=== PATIENT | female | born 1995 | race Caucasian/White ===

== ENCOUNTER 2017-07-07 08:00 | Outpatient (CLI) | payer OTHER | END 2017-07-07 08:01 | disposition home or self-care (01) | LOC: LAB.R 08:00 | PROVIDERS: ATTEND Registered Nurse | DX: Z11.3 Encounter for screening for infections with a predominantly sexual mode of transmission (principal) | CPT/HCPCS: 87491; 87591 ==

== ENCOUNTER 2017-07-07 08:00 | Outpatient (CLI) | payer OTHER ==
[2017-07-07 19:36] LABS: THYROID STIMULATING HORMONE 2.67 uIU/mL (0.34-5.60)
[2017-07-07 19:42] LABS: PROLACTIN 7.43 ng/mL
[2017-07-07 19:52] LABS: HB2 TOTAL 14.8 g/dL; HEMOGLOBIN A1C 0.44 g/dL; HEMOGLOBIN A1C % 4.9 % (4.6-6.2)
[2017-07-07 20:04] LABS: FOLLICLE STIMULATING HORMONE 6.56 mIU/mL
[2017-07-07 20:05] LABS: LUTEINIZING HORMONE 17.03 mIU/mL
== END 2017-07-07 08:01 | disposition home or self-care (01) ==
LOC: LAB.N 08:00
PROVIDERS: ATTEND Registered Nurse
DX: N92.6 Irregular menstruation, unspecified (principal); Z11.3 Encounter for screening for infections with a predominantly sexual mode of transmission
CPT/HCPCS: 36415; 81599; 82627; 83001; 83002; 83036; 84146; 84270; 84402; 84403; 84443; 87491; 87591

== ENCOUNTER 2017-07-17 18:55 | Outpatient (CLI) | payer OTHER ==
--- NOTE | 2017-07-18 10:42 | Ultrasound Report ---
PELVIC ULTRASOUND: 07/17/2017 CLINICAL INDICATION: Irregular menstruation. TECHNIQUE: Transabdominal pelvic ultrasound performed for global evaluation. Transvaginal pelvic ultrasound performed for detailed evaluation. Real-time scanning performed and static images obtained. FINDINGS: The uterus is anteverted, measuring 8.5 x 4.9 x 3.6 cm. The endometrial echo complex measures 18 mm. No focal myometrial lesion is present. The right ovary measures 3.2 x 2.1 x 1.8 cm, and is unremarkable. The left ovary measures 3.3 x 2.8 x 2.2 cm, and contains a 2.3 cm hemorrhagic cyst. No free fluid is present. IMPRESSION: LEFT HEMORRHAGIC CYST. TD: 07/18/2017 10:41
== END 2017-07-17 18:56 | disposition home or self-care (01) ==
LOC: DI 18:55
PROVIDERS: ATTEND Registered Nurse
DX: N83.202 Unspecified ovarian cyst, left side (principal)
CPT/HCPCS: 76830; 76856

== ENCOUNTER 2017-10-10 12:51 | Outpatient (CLI) | payer OTHER ==
[2017-10-10 13:16] LABS: BASOPHILS % (AUTO) 0.3 %; EOSINOPHILS # (AUTO) 0.1 10^3/uL (0.0-0.7); EOSINOPHILS % (AUTO) 0.8 %; HGB - HEMOGLOBIN 13.1 g/dL (12.0-16.0); LYMPHOCYTES # (AUTO) 1.4 10^3/uL (1.5-3.5); MEAN CORPUSCULAR HEMOGLOBIN 30.7 pg (27.0-31.0); MEAN CORPUSCULAR HGB CONC 35.9 g/dL (32.0-36.0); MEAN CORPUSCULAR VOLUME 85.5 fL (81.0-99.0); MEAN PLATELET VOLUME 8.6 fL (7.9-10.8); MONOCYTES # (AUTO) 0.4 10^3/uL (0.0-1.0); MONOCYTES % (AUTO) 5.3 %; NEUTROPHILS # (AUTO) 5.7 10^3/uL (1.5-6.6); NEUTROPHILS % (AUTO) 74.6 %; PLT - PLATELET COUNT 176 10^3/uL (130-450); RED BLOOD COUNT 4.27 10^6/uL (4.20-5.40); RED CELL DISTRIBUTION WIDTH 14.4 % (12.0-15.0); WHITE BLOOD COUNT 7.6 x10^3/uL (4.8-10.8)
[2017-10-11 12:51] LABS: HEPATITIS B SURFACE ANTIGEN NON-REACTIVE (NON-REACTIVE)
[2017-10-11 17:01] LABS: HIV AG/AB 4TH GEN NON-REACTIVE (NON-REACTIVE)
== END 2017-10-10 12:52 | disposition home or self-care (01) ==
LOC: LAB 12:51
PROVIDERS: ATTEND Nurse Practitioner Obstetrics & Gynecology
DX: Z36.9 Encounter for antenatal screening, unspecified (principal)
CPT/HCPCS: 36415; 81599; 85025; 86592; 86762; 86850; 86900; 86901; 87340; 87389

== ENCOUNTER 2017-10-28 07:08 | Outpatient (CLI) | payer OTHER ==
--- NOTE | 2017-10-28 11:14 | Ultrasound Report ---
Procedure Date: 10/28/2017 Accession Number: [id number] / [id number] Procedure: US - OB Detailed Eval CPT Code: FULL RESULT: EXAM: OB Detailed Eval DATE: 10/28/2017 7:31 AM CLINICAL INDICATION: anatomy COMPARISON: None TECHNIQUE: Real-time scanning was performed with architectural representative static images obtained. LAST MENSTRUAL PERIOD: Uncertain US Age: 18 weeks 5 days EFW Hadlock: 237 grams Heart Rate: 130 bpm US EDC: 03/26/2018 BPD Hadlock: 19 weeks 2 days; Mean mm 44.1 HC Hadlock: 18 weeks 5 days; Mean mm 158.9 AC Hadlock: 18 weeks 5 days; Mean mm 131.3 FL Hadlock: 18 weeks 0 days; Mean mm 26.1 Presentation: Vertex Placental Presentation: Posterior Cervical Length: 4.4 cm Amniotic Fluid: Subjectively normal; MVP 3.6 cm FINDINGS: There is a single viable intrauterine gestation, in vertex presentation. heart rate is 130 BPM. The placenta is posterior, without evidence of previa. Amniotic fluid volume is subjectively normal. The following anatomic structures were visualized and appear normal: The intracranial contents, including the ventricles and posterior fossa; the lips and orbits; the spine; the heart, including 4 chamber view and outflow tracts, and diaphragm; the abdominal contents, including the stomach, the bilateral kidneys, and urinary bladder, as well as a normal 3-vessel cord insertion; 4 limbs. No free fluid or adnexal lesion is appreciated. IMPRESSION: Single viable intrauterine gestation, measuring 18 weeks 5 days by size. Normal anatomic survey.
== END 2017-10-28 07:09 | disposition home or self-care (01) ==
LOC: DI 07:08
PROVIDERS: ATTEND Nurse Practitioner Obstetrics & Gynecology
DX: Z36.9 Encounter for antenatal screening, unspecified (principal)
CPT/HCPCS: 76811

== ENCOUNTER 2018-01-05 15:36 | Outpatient (CLI) | payer OTHER ==
[2018-01-05 16:50] LABS: BASOPHILS % (AUTO) 0.3 %; EOSINOPHILS # (AUTO) 0.1 10^3/uL (0.0-0.7); EOSINOPHILS % (AUTO) 1.2 %; HGB - HEMOGLOBIN 12.1 g/dL (12.0-16.0); LYMPHOCYTES # (AUTO) 1.3 10^3/uL (1.5-3.5); LYMPHOCYTES % (AUTO) 18.5 %; MEAN CORPUSCULAR HGB CONC 36.2 g/dL (32.0-36.0); MEAN CORPUSCULAR VOLUME 88.5 fL (81.0-99.0); MEAN PLATELET VOLUME 7.5 fL (7.9-10.8); MONOCYTES # (AUTO) 0.5 10^3/uL (0.0-1.0); MONOCYTES % (AUTO) 6.8 %; NEUTROPHILS # (AUTO) 5.1 10^3/uL (1.5-6.6); NEUTROPHILS % (AUTO) 73.2 %; PLT - PLATELET COUNT 198 10^3/uL (130-450); RED BLOOD COUNT 3.79 10^6/uL (4.20-5.40); RED CELL DISTRIBUTION WIDTH 13.4 % (12.0-15.0)
== END 2018-01-05 15:37 | disposition home or self-care (01) ==
LOC: LAB 15:36
PROVIDERS: ATTEND Nurse Practitioner Obstetrics & Gynecology
DX: Z36.9 Encounter for antenatal screening, unspecified (principal)
CPT/HCPCS: 36415; 82950; 85025; 86850

== ENCOUNTER 2018-02-27 08:00 | Outpatient (CLI) | payer OTHER | END 2018-02-27 08:01 | disposition home or self-care (01) | LOC: LAB.R 08:00 | PROVIDERS: ATTEND Registered Nurse | DX: Z34.83 Encounter for supervision of other normal pregnancy, third trimester (principal) | CPT/HCPCS: 87797 ==

== ENCOUNTER 2018-03-02 13:08 | Outpatient (CLI) | payer OTHER ==
--- NOTE | 2018-03-02 16:04 | Ultrasound Report ---
Reason: SMALL FOR DATES, PLEASE INCLUDE ARIES Procedure Date: 03/02/2018 Accession Number: [id number] / [id number] Procedure: US - OB F/U or Repeat CPT Code: FULL RESULT: EXAM: FOLLOW-UP OBSTETRICAL ULTRASOUND EXAM DATE: 03/02/2018 02:21 PM. CLINICAL HISTORY: SMALL FOR DATES, PLEASE INCLUDE ARIES. COMPARISON: 10/28/2017. TECHNIQUE: Real-time sonographic evaluation of the fetus performed by the forestry technician. Multiple sales representative facility services static images were saved for review. DATING: EGA 36 weeks 4 days with MARY 03/26/2018 based on prior ultrasound of 10/28/2017. EGA 35 weeks 4 days with MARY 04/02/2018 based on the current ultrasound. GENERAL EVALUATION Bennett . Cardiac activity: 128 bpm. movement: Present. Presentation: Cephalic. Placenta: Posterior position. Amniotic fluid: Normal. ARIES 14.8 cm. MVP 5.6 cm. BIOMETRY Bi-Parietal Diameter (BPD): 9 cm, 36 weeks 5 days Head Circumference (HC): 32.7 cm, 37 weeks 1 day Abdominal Circumference (AC): 31.2 cm, 35 weeks 1 day Femur Length (FL): 6.5 cm, 33 weeks 5 days Estimated Weight: 2603 gm, 16th percentile. ANATOMY Not assessed due to late gestational age. MATERNAL STRUCTURES Cervix 3.3 cm IMPRESSION: 1. Bennett intrauterine with gestational age 35 weeks 4 days based on the current ultrasound. 2. Estimated weight is in the 16th percentile. 3. ARIES 14.8 cm.
== END 2018-03-02 13:09 | disposition home or self-care (01) ==
LOC: DI 13:08
PROVIDERS: ATTEND Nurse Practitioner Obstetrics & Gynecology
DX: O26.843 Uterine size-date discrepancy, third trimester (principal); Z3A.35 35 weeks gestation of pregnancy
CPT/HCPCS: 76816

== ENCOUNTER 2018-03-17 20:09 | Inpatient (IN) | payer OTHER ==
--- NOTE | 2018-03-17 18:54 | HISTORY & PHYSICAL EXAMINATION ---
Admit History - Visit Reason Visit Reason: Other (preinduction cervical ripening for induction of labor secondary to gestational HTN w/ new onset @ 38 weeks' EGA) - : 2 Parity: 1 Premature: 0 Ectopic: 0 : 0 Care: positive: [facility] (beginning @ 14 weeks x10 visits) Risk/History: positive: None Complications This : positive: None Smoking Status: Never smoker - Mother's Labs Mother's Blood Type: positive: O Mother's RH: positive: Positive GBS: positive: Group B Step Negative Rubella Status: positive: Immune Review of Systems - Constitutional Constitutional: denies: Fatigue, Fever, Chills - Eyes Eyes: denies: Blurred vision, Spots in vision - Cardiovascular Cariovascular: denies: Irregular heart rate, Palpitations, Chest pain, Edema - Respiratory Respiratory: denies: Cough, Snoring, SOB at rest, SOB with exertion - Gastrointestinal Gastrointestinal: denies: Abdominal pain, Constipation, Diarrhea, Change in bowel habits, Nausea, Vomiting - Genitourinary Genitourinary: reports: Frequency. denies: Dysuria, Urgency - Musculoskeletal Musculoskeletal: reports: Back pain. denies: Muscle pain, Muscle aches, Stiffness - Integumentary Integumentary: denies: Rash, Pruritis, Lesions - Neurological Neurological: reports: Headache. denies: General weakness, Focal weakness, Dizziness, Numbness, Memory problems - Psychiatric Psychiatric: denies: Depression, Anxiety - Endocrine Endocrine: denies: Polyuria, Polydypsia - All Other Systems All Other Systems: reports: Reviewed and negative Physical - Abdominal Exam Vital Signs: 138/98 x3 in clinic today Contraction Frequency (min/apart): rare Contraction Intensity: positive: Mild Uterine Resting Tone: positive: Soft - Monitoring Heart Rate Baseline: 140 Strip Review: positive: Category I - Presentation Presentation: positive: Vertex - Vaginal Exam Membranes: positive: Membranes intact Dilation (in cm): 2 Effacement (%): 50 Station: positive: -2 Cervical Position: positive: Posterior - Speculum Exam Speculum Exam Performed: positive: No Findings: negative: Gross leak - Other Notes Labor Progress Note/Additional Text: Cherie Funes is a 22 y/o @ 38w6d by LMP c/w 14 week who received consistent care t/o ; her care was complicated by painful vulvar varicosities & some lumbar discomfort. At 38 weeks, 6 days, she presented to clinic w/ new onset elevated BP & new onset severe VALLE w/ some response to acetaminophen. She had no proteinuria on dip & denied other neurologic symptoms. She denied RUQ/epigastric/shoulder pain. She was counseled regarding gHTN & its management & she elected IOL w/ preinduction cervical ripening overnight. We reviewed risks/benefits/alternatives & full PARQ was held; informed consent for misoprostol preinduction cervical ripening w/ 39 week IOL for GHTN was obtained. She screened negative for GBS @ 36 weeks' gestation & had an otherwise unremarkable course. She measured S<D @ 34 weeks & had a normal growth US @ that time. PMH: Generalized anxiety disorder on sertraline 50mg po daily; well-controlled PSH: None OBhx: 2014 FTSVD 7#6oz, no complication: CAESAR GYNhx: Vulvar varicosities; hx menometrorrhagia, hx mastalgia; no hx abnl pap; no hx STI SocHx: works p/t as a childcare provider; to [employer], denies DV; Denies ETOH/tobacco/drugs; anxiety well-managed FamHx: Non-contributory PE: GEN: AAOX3, NAD WA gravid female HEENT: grossly normocephalic, atraumatic RESP: cta b/l t/o CARDIAC: rrr nls1s2, no murmur ABD: gravid, NT, FH 37cm, lie longitudinal, presentation cephalic, EFW 6.5-7# : bulging b/l labia minora varicosities L>R OB: [place] 140s, RRR, palpable occ mild contraction; sve: 2/50/-2, posterior, soft, IBOW MS: FROM t/o, no deformity/erythema/edema SKIN: warm, well-perfused, c/d/i, tattoos, umbilical piercing, facial piercing NEURO: no focal deficit; patellar DTRs +2, no clonus PSYCH: normal mood & affect, pleasantly conversant Plan for Labor - Plan For Labor I expect patient to be DC'd or transferred within 96 hours.: Yes Plan for Labor: 1. Admit to obs for preinduction cervical ripening w/ buccal misoprostol 50mcg q 4 hrs per protocol 2. CEFM, CBC, clot to hold, PET labs 3. Careful BP monitoring w/ initiation of antihypertensive therapy for severe- range BPs 4. Reassess cervical status x4 hours, earlier PRN 5. Analgesia/anesthesia PRN per pt request 6. Continue sertraline dosing for HECTOR
[~2018-03-17 20:09] MED LIST: LACTATED RINGERS 1,000 ML IV SCH; ONDANSETRON 4 MG/2 ML VIAL IVP PRN; OXYTOCIN/SODIUM CHLORIDE 250 ML IV ONE; SODIUM CHLORIDE FLUSH 0.9% 10 ML SYRINGE IVP PRN; fentaNYL 100 MCG/2 ML VIAL IVP PRN
[2018-03-17] MEDS: miSOPROStol 100 MCG TABLET BC SCH ×2 (21:12→23:14)
[2018-03-17 21:14] LABS: BASOPHILS % (AUTO) 0.3 %; EOSINOPHILS # (AUTO) 0.1 10^3/uL (0.0-0.7); EOSINOPHILS % (AUTO) 0.5 %; HGB - HEMOGLOBIN 12.6 g/dL (12.0-16.0); LYMPHOCYTES # (AUTO) 2.1 10^3/uL (1.5-3.5); LYMPHOCYTES % (AUTO) 19.5 %; MEAN CORPUSCULAR HEMOGLOBIN 31.5 pg (27.0-31.0); MEAN CORPUSCULAR HGB CONC 34.5 g/dL (32.0-36.0); MEAN CORPUSCULAR VOLUME 91.1 fL (81.0-99.0); MEAN PLATELET VOLUME 9.4 fL (7.9-10.8); MONOCYTES # (AUTO) 0.6 10^3/uL (0.0-1.0); MONOCYTES % (AUTO) 5.8 %; NEUTROPHILS # (AUTO) 7.8 10^3/uL (1.5-6.6); NEUTROPHILS % (AUTO) 73.9 %; PLT - PLATELET COUNT 169 10^3/uL (130-450); RED CELL DISTRIBUTION WIDTH 13.8 % (12.0-15.0); WHITE BLOOD COUNT 10.5 x10^3/uL (4.8-10.8)
[2018-03-17 21:26] LABS: CREATININE 0.7 mg/dL (0.4-1.0); URIC ACID 4.7 mg/dL (2.6-7.2)
[2018-03-17 21:51] LABS: BILIRUBIN,URINE NEGATIVE (NEGATIVE); GLUCOSE, URINE (UA) NEGATIVE (NEGATIVE); KETONES,URINE (UA) NEGATIVE (NEGATIVE); LEUKOCYTE ESTERASE, URINE NEGATIVE (NEGATIVE); NITRITE,URINE NEGATIVE (NEGATIVE); OCCULT BLOOD,URINE NEGATIVE (NEGATIVE); PROTEIN,URINE NEGATIVE (NEGATIVE); UROBILINOGEN,URINE 0.2 (NORMAL) E.U./dL (NORMAL)
[2018-03-17 21:53] LABS: CLARITY,URINE CLEAR (CLEAR)
[2018-03-17 22:15] LABS: CREATININE,URINE 37.9 mg/dL; TOTAL PROTEIN,URINE TIMED < 6 mg/dL
[2018-03-18] MEDS ORDERED: SODIUM CHLORIDE FLUSH 0.9% 10 ML SYRINGE IVP SCH (01:00)
[2018-03-18] MEDS: miSOPROStol 100 MCG TABLET BC SCH ×3 (01:03→05:08)
--- NOTE | 2018-03-18 08:17 | ANESTHESIA ---
Pre-Anesthesia VS, & Labs - Diagnosis term - Procedure labor epidural Vital Signs: Temp Pulse Resp BP Pulse Ox 36.5 C 69 20 118/68 99 03/18/18 05:00 03/18/18 05:00 03/18/18 05:00 03/18/18 05:00 03/18/18 05:00 Height 5 ft 3 in Weight (kg) 60.781 kg - NPO Other (clears) - Is Patient ?: Yes - Lab Results Current Lab Results: Laboratory Tests 03/17/18 21:00: Lactate Dehydrogenase 134 03/17/18 21:00: Creatinine 0.7, Estimated GFR (MDRD) 103, Uric Acid 4.7, AST 20 03/17/18 21:00: WBC 10.5, RBC 4.00 L, Hgb 12.6, Hct 36.5 L, MCV 91.1, MCH 31.5 H , MCHC 34.5, RDW 13.8, Plt Count 169, MPV 9.4, Neut # (Auto) 7.8 H, Lymph # (Auto) 2.1, Isabella # (Auto) 0.6, Eos # (Auto) 0.1, Baso # (Auto) 0.0, Absolute Nucleated RBC 0.00, Nucleated RBC % 0.0 Fish Bones: 03/17/18 21:00 03/17/18 21:00 Home Medications and Allergies Active Medications Acetaminophen (Tylenol) 650 mg PO Q6H PRN PRN Reason: Pain or Fever Fentanyl (Fentanyl) 50 mcg IVP Q1H PRN PRN Reason: PAIN Lactated Ringer's (Lr) 1,000 mls @ 100 mls/hr IV .Q10H [facility] Last Admin: 03/18/18 07:35 Dose: 999 mls/hr Misoprostol (Cytotec) 50 mcg BC Q4HR [facility] Last Admin: 03/18/18 05:08 Dose: 50 mcg Ondansetron HCl (Zofran Inj) 4 mg IVP Q4HR PRN PRN Reason: Nausea / Vomiting Multivit/Folic Acid/Iron (Trinatal Rx 1) 1 tab PO DAILYWM [facility] Sertraline HCl (Zoloft) 50 mg PO DAILY [facility] Sodium Chloride (Normal Saline Flush 0.9%) 10 ml IVP 0100,0900,1700 [facility] Last Admin: 03/18/18 07:36 Dose: 10 ml Sodium Chloride (Normal Saline Flush 0.9%) 10 ml IVP PRN PRN PRN Reason: NEEDED PER PROVIDER ORDERS Allergies/Adverse Reactions: Allergies Allergy/AdvReac Type Severity Reaction Status Date / Time No Known Drug Allergies Allergy Verified 03/17/18 21:07 Anes History & Medical History - Anesthetic History Anesthesia Complications: reports: No previous complications - Medical History Smoking Status: Never smoker - Obstetrical History : 2 Parity: 1 Events: positive: None Complications: positive: None Plan for Delivery: vaginal, epidural Exam General: Alert, Moderate distress Dental: WNL Mouth Openin Fingerbreadth Mallampati classification: II Thyromental Distance: 4-6 cm Respiratory: Lungs clear Cardiovascular: Regular rate Plan Anesthesia Type: Epidural Consent for Procedure(s) Verified and Reviewed: Yes Code Status: Attempt Resuscitation ASA classification: 2-Mild systemic disease Is this case an emergency?: No
[2018-03-18] MEDS ORDERED: OXYTOCIN 10 UNIT/ML VIAL ONE (08:20)
--- NOTE | 2018-03-18 08:20 | DELIVERY NOTE ---
Delivery Note - Labor Labor: positive: Other (preinduction cervical ripening x3 doses of buccal misoprostol 50mcg) - Infant Delivery Method Delivery Method: positive: Spontaneous vaginal delivery - Cervical Ripening Method Cervical Ripening Method: positive: Misoprostil (x3 doses) - Presentation Presentation: positive: Vertex, JOANIE - left occiput anterior - Nuchal Cord Nuchal Cord: positive: Present (loose x1, easily reduced prior to delivery of head & body) - Anesthetic Anesthetic Type: - Amniotic Fluid Description Amniotic Fluid Description: positive: Clear - Episiotomy Type Episiotomy Type: positive: None - Laceration Laceration: positive: None - Delivery Outcome Delivery Outcome: positive: Livebirth - [place] : positive: Placed in direct skin contact with mother, Stimulated, Warmed, [place] used [place] sex: positive: Male - Cord Cord: positive: 3 vessels - Placenta Placenta: positive: Intact, Spontaneous - Estimated Blood Loss Estimated Blood Loss (in cc): 200 - Post Delivery Events Post Delivery Events: positive: No post delivery events - Delivery Comments (Free Text/Narrative) Delivery Comments (Free Text/Narrative): Cherie Funes is a 22 y/o [id number] who presented @ 38w6d for preinduction cervical ripening for gestational HTN dx'ed @ 38 weeks; no s/sx PET, labs WNL. She received 3 total doses of 50mcg buccal misoprostol & progressed to spontaneous labor w/ onset @ 0700 & SROM for CAF @ the same time. She shortly thereafter requested epidural anesthesia &, on evaluation by RN, was found to still be 2cm. FHTs monitored electronically & found to be consistently cat I. She then progressed rapidly to complete dilatation w/ spontaneous urge to push @ 0756, for a total first stage duration of 56 minutes. She pushed w/ spontaneous urge & excellent expulsive effort to viable male in JOANIE position over an intact perineum @ 0804, for a total 2nd stage duration of 8 minutes with 4 minutes of active pushing. Loose nuchal x1 easily reduced prior to delivery of head/body. Infant vigorous w/ spontaneous, lusty cry. Placed to maternal abd for drying/stim. Delayed cord clamping until cessation of pulsation, then cord clamped x2 by CNM, cut by FOB. 3VC noted, cord blood obtained. Active management of 3rd stage delayed secondary to non-availability of Pitocin @ the time of rapid delivery; 10units IM Pitocin administered immediately prior to del of placenta. Placenta del spont & intact, Yael @ 0806, for a total 3rd stage duration of 2 minutes. FF @ U. Vagina & perineum inspected & found to be intact. EBL 200mL. Mother & stable, plans to breastfeed. Apgars 8/9. Weight & name pending.
[2018-03-18] MEDS ORDERED: OXYTOCIN/SODIUM CHLORIDE 250 ML IV ONE ×2 (08:21→08:39)
[2018-03-18] MEDS ORDERED: HYDROCORTISONE/PRAMOXINE 10 GM PR PRN (08:21)
[2018-03-18] MEDS ORDERED: HYDROCORTISONE 1% CREAM 28 GM TUBE PR PRN (08:21)
[2018-03-18] MEDS ORDERED: WITCH HAZEL/GLYCERIN 1 EACH MED..PAD TOP PRN (08:21)
[2018-03-18] MEDS ORDERED: MAGNESIUM HYDROXIDE 2,400 MG/30 ML UDC PO PRN (08:21)
[2018-03-18] MEDS ORDERED: OXYTOCIN 10 UNIT/ML VIAL IM ONE (08:21)
[2018-03-18] MEDS ORDERED: NALOXONE 0.4 MG/ML VIAL IVP PRN (08:27)
[2018-03-18] MEDS ORDERED: ePHEDrine 50 MG/ML VIAL IVP PRN (08:27)
[2018-03-18] MEDS ORDERED: diphenhydrAMINE INJ 50 MG/ML VIAL IVP PRN (08:27)
[2018-03-18] MEDS ORDERED: NALBUPHINE 10 MG/ML AMP IVP PRN (08:27)
[2018-03-18] MEDS ORDERED: LACTATED RINGERS 500 ML IV ONE (08:27)
[2018-03-18] MEDS ORDERED: ONDANSETRON 4 MG/2 ML VIAL IVP PRN (08:27)
[2018-03-18] MEDS: SERTRALINE 50 MG TABLET PO SCH (08:35)
[2018-03-18] MEDS: PRENATAL VITAMIN TABLET PO SCH (08:35)
[2018-03-18] MEDS ORDERED: LACTATED RINGERS 1,000 ML IV SCH (09:00)
[2018-03-18] MEDS: ACETAMINOPHEN 325 MG TABLET PO PRN ×2 (09:32→15:39)
[2018-03-18] MEDS: IBUPROFEN 800 MG TABLET PO SCH ×3 (09:32→20:59)
[2018-03-18] MEDS: DOCUSATE SODIUM 100 MG CAPSULE PO SCH ×2 (09:32→20:59)
[2018-03-19] MEDS: IBUPROFEN 800 MG TABLET PO SCH ×2 (02:58→10:27)
--- NOTE | 2018-03-19 07:30 | Discharge Plan ---
Discharge Plan Disposition: 01 Home, Self Care Condition: Good Diet: Regular Activity Restrictions: pelvic rest x6 weeks Shower Restrictions: No Driving Restrictions: No Weight Bearing: Full Weight Instruction Topics: Vaginal After, Breastfeed How To, Exercises Kegel No Smoking: If you smoke, Please STOP! Call for help. Follow-up with: Vasiliy Gonzalez, RICARDO, NASIM [Provider Admit Priv/Credential] -
--- NOTE | 2018-03-19 07:32 | DISCHARGE SUMMARY ---
"Discharge Summary Admit Date: 03/17/18 Discharge Date: 03/19/18 Discharging Provider: elvia Code Status: Attempt Resuscitation Condition at Discharge: Good Discharge Disposition: Home, Self Care Discharge Facility Name: [facility] - DIAGNOSES Admission Diagnoses: 38 weeks gestation gestational hypertension w/o s/sx PET Discharge Diagnoses with Status of Each Condition: - HPI History of Present Illness: Cherie Funes is a 22 y/o who presented for preinduction cervical ripening @ 38w6d for new onset gestational HTN w/o s/sx PET. She received 3 total doses of buccal misoprostol & entered spontaneous labor. She SROMed for CAF & progressed steadily to complete dilatation. S he received epidural anesthesia minutes before she delivered a viable male infant vaginally over an intact perineum w/o complication. - CONSULTS | PROCEDURES Consultations: anesthesia Procedures: misoprostol preinduction cervical ripening epidural placement - HOSPITAL COURSE Hospital Course: , Cherie is doing well. She is ambulating & voiding w/o difficulty or discomfort. She is passing flatus & tolerating a regular diet. She is well w/ excellent latch. She reports minimal lochia rubra & adequate pain control w/ non-opioid analgesia. She has a hx of generalized anxiety that has been well-controlled on 50mg po sertraline, which she intends to continue. She denies a hx of pp depression. She is not planning to return to work. She has excellent social support. She is able to fully articulate pp warning s/sx, including pp depression s/sx. She is ready to leave the hospital. - ALLERGIES Allergies/Adverse Reactions: Allergies Allergy/AdvReac Type Severity Reaction Status Date / Time No Known Drug Allergies Allergy Verified 03/17/18 21:07 - MEDICATIONS Home Medications: Ambulatory Orders Medication Instructions Recorded Confirmed Ibuprofen [Motrin] 800 mg PO Q6H tablet 03/19/18 Sertraline [Zoloft] 50 mg PO DAILY tablet 03/19/18 - PHYSICAL EXAM AT DISCHARGE General Appearance: positive: No acute distress, Alert Eyes Bilateral: positive: Normal inspection, PERRL, EOMI Respiratory: positive: Chest non-tender, No respiratory distress, Breath sounds nml Cardiovascular: positive: Regular rate & rhythm, No murmur, No gallop Abdomen: positive: Non-tender, No distention, Other (FF U-1) Skin: positive: Color nml, No rash, Warm, Dry Extremities: positive: Non-tender, Full ROM, Nml appearance Neurologic/Psychiatric: positive: Oriented x3, CN's nml (2-12), Motor nml, Sensation nml, Mood/affect nml - LABS Result Diagrams: 03/17/18 21:00 03/17/18 21:00 - FOLLOW UP Follow Up: x1 week, x3 weeks & x8 weeks w/ remberto gan CNM - TIME SPENT Time Spent in Discharge (Minutes): 15"
[2018-03-19] MEDS: DOCUSATE SODIUM 100 MG CAPSULE PO SCH (08:54)
[2018-03-19] MEDS: PRENATAL VITAMIN TABLET PO SCH (08:55)
[2018-03-19] MEDS: SERTRALINE 50 MG TABLET PO SCH (08:55)
[2018-03-19 09:29] VITALS: BP 129/79
--- NOTE | 2018-03-19 12:36 | Labor Flowsheet ---
Labor Flowsheet Datetime Report Generated by CPN: 03/19/2018 12:35 Datetime: 03/19/2018 09:01 VITAL SIGNS NBP Sys/Candice/Mean (mmHg): 129 : 79 : 92 Pulse: 74 LaborFlag: Labor Datetime: 03/18/2018 19:40 SpO2 (%): 98 Datetime: 03/18/2018 08:52 Membranes Ruptured Date/Time: 03/18/2018 06:10 Datetime: 03/18/2018 08:11 Temperature (C): 36.7 Datetime: 03/18/2018 08:08 STAGE 2 Stage 2 Comments: placenta 0807 Datetime: 03/18/2018 08:04 ASSESSMENT A Monitor Mode: External US Monitor Interventions for FHR: Ultrasound Adjusted Variability: Marked >25 bpm Accelerations: 15X15 Decelerations: Prolonged Category: Category II Comments: hand holding US monitor. Baby delivering. Oxygen Method: Face Mask Datetime: 03/18/2018 07:58 PROCEDURE TIME OUT Procedure Type: 0759 ANESTHESIA Anesthesia Plans: Epidural Epidural Procedure: Loading Dose Datetime: 03/18/2018 07:57 VAGINAL EXAM Dilatation (cm): 10.0 Effacement (%): 100 Station: 4 Exam by: T Ken RN Vaginal Exam Comments: Patient Position/Activity: Left Lateral Datetime: 03/18/2018 07:56 UTERINE ACTIVITY Monitor Mode: External Quality: Strong Resting Tone (Palpate): Relaxed FHR Baseline Rate : 135 Datetime: 03/18/2018 07:55 Anesthesia Comments: Threading epidural catheter Datetime: 03/18/2018 07:50 Frequency (min): 1.5-5 Duration (sec): 40-120 Contraction Comments: wanting to push, Photoengraving Machine Operator/Tender called Datetime: 03/18/2018 07:45 Procedure Verify: Correct Patient Identity; Accurate Procedure Consent Form; Agreement on Procedure to be Done Datetime: 03/18/2018 07:40 PAIN Pain Scale: 8 Pain Presence: Intermittent Pain Type: Cramping Pain Location: Abdomen Pain Relief Measures: FISH PROTECTOR Use Pain Coping: Breathing Through Contractions; Requesting Pain Medication or Epidural Pain Assessment Comments: getting an epidural Comfort Measures: Breathing/Relaxation; Family Support; Anesthesia Notified Datetime: 03/18/2018 07:38 COMMUNICATION Communication: Call/Page Placed to Provider Communication Comments: called with pt request for epidural. Datetime: 03/18/2018 07:36 PATIENT CARE IV/Blood Work: IV Bolus Started; New IV Bag Hung Datetime: 03/18/2018 07:20 Pattern: Normal: <= 5 Contractions in 10 Minutes I/O Interventions: Up to BR Datetime: 03/18/2018 07:13 Patient Care Comments: Pt walking @ bedside and periodically bouncing on labor ball Datetime: 03/18/2018 06:25 Stage of : Labor Datetime: 03/18/2018 06:10 Membrane Status: Ruptured Membranes Rupture Method: Spontaneous Amniotic Fluid Color: Clear Amniotic Fluid Amount: Moderate Amniotic Fluid Odor: Normal Datetime: 03/18/2018 05:28 MATERNAL ASSESSMENT Level of Consciousness: Fully Conscious DTR's/Clonus: DTRs 2+; No Clonus Headache: Denies Breath Sounds, Left: Clear and Equal Breath Sounds, Right: Clear and Equal Nausea/Vomiting: Denies RUQ Epigastric Pain: Denies Datetime: 03/18/2018 05:07 MEDICATIONS Cervical Ripening Agents: Cytotec @ Datetime: 03/18/2018 04:00 Vibroacoustic Stim: Datetime: 03/17/2018 22:34 Pain Goal: 10 Datetime: 03/17/2018 20:30 Hygiene: Gown Changed TEACHING Instructional Method: Verbal Plan of Care: Plan of Care Discussed; Vaginal Delivery; Induction Unit Routine: [place] to Room; Call [place]; Handwashing; Monitoring; IV Pumps; Diet/Nutrition Se rvices; Medications Labor/Induction: Labor Stages; Cervical Ripening; Induction; Interventions Pain Management: Epidural; Pain Scale/Goals; Comfort Measures Medications: Cervical Ripening Related: Activity and Rest
== END 2018-03-19 12:30 | disposition home or self-care (01) | DRG 807 ==
LOC: FBP 20:09 → WFO 20:09 → FBP 20:12 → OBSVTOIN 03-18 06:18
PROVIDERS: ADMIT Registered Nurse; ATTEND Registered Nurse
PROC: 3E0P7VZ Introduction of Hormone into Female Reproductive, Via Natural or Artificial Opening (ICD-10-PCS; 2018-03-17)
PROC: 10E0XZZ Delivery of Products of Conception, External Approach (ICD-10-PCS; principal; 2018-03-18)
DX: O13.4 Gestational [pregnancy-induced] hypertension without significant proteinuria, complicating childbirth (principal); O22.10 Genital varices in pregnancy, unspecified trimester; O99.343 Other mental disorders complicating pregnancy, third trimester; F41.9 Anxiety disorder, unspecified; O69.9XX0 Labor and delivery complicated by cord complication, unspecified, not applicable or unspecified; Z37.0 Single live birth; Z3A.38 38 weeks gestation of pregnancy
CPT/HCPCS: 36415; 81001; 81003; 82565; 82570; 83615; 84156; 84450; 84550; 85025; 87086

== ENCOUNTER 2018-05-25 08:00 | Outpatient (CLI) | payer OTHER | END 2018-05-25 23:59 | disposition home or self-care (01) | LOC: LAB.N 08:00 | PROVIDERS: ATTEND Registered Nurse | DX: Z00.00 Encounter for general adult medical examination without abnormal findings (principal) | CPT/HCPCS: 36415; 84443 ==